=== PATIENT | female | born 1990 | race Hispanic/Latino ===

== ENCOUNTER → 2019-02-23 | Outpatient (CLI) | payer MEDICARE | END | disposition home or self-care (01) | LOC: SLP 20:00 | PROVIDERS: ATTEND Family Medicine | DX: G47.33 Obstructive sleep apnea (adult) (pediatric) (principal); E66.9 Obesity, unspecified; Z68.42 Body mass index [BMI] 45.0-49.9, adult | CPT/HCPCS: 95810 ==

== ENCOUNTER → 2019-04-05 | Outpatient (CLI) | payer MEDICARE | END | disposition home or self-care (01) | LOC: SLP 20:12 | PROVIDERS: ATTEND Family Medicine | DX: G47.33 Obstructive sleep apnea (adult) (pediatric) (principal); G47.34 Idiopathic sleep related nonobstructive alveolar hypoventilation; R06.83 Snoring; E66.9 Obesity, unspecified; F41.9 Anxiety disorder, unspecified; F32.9 Major depressive disorder, single episode, unspecified | CPT/HCPCS: 95811 ==

== ENCOUNTER → 2019-06-25 | Outpatient (CLI) | payer MEDICARE | END | disposition home or self-care (01) | LOC: SLP 19:46 | PROVIDERS: ATTEND Obstetrics & Gynecology | DX: G47.33 Obstructive sleep apnea (adult) (pediatric) (principal) | CPT/HCPCS: 95811 ==

== ENCOUNTER 2022-01-19 18:22 | Emergency (ER) | payer OTHER, MEDICARE ==
[~2022-01-19] VITALS: Ht 160 cm; Wt 108.0 kg
[2022-01-19 18:23] VITALS: BP 127/82
[2022-01-19 19:21] LABS: APPEARANCE,URINE CLOUDY (CLEAR); BILIRUBIN,URINE NEGATIVE (NEGATIVE); COLOR,URINE YELLOW (YELLOW); GLUCOSE, URINE (UA) NEGATIVE (NEGATIVE); KETONES,URINE NEGATIVE (NEGATIVE); LEUKOCYTE ESTERASE ,URINE NEGATIVE (NEGATIVE); NITRATE,URINE NEGATIVE (NEGATIVE); OCCULT BLOOD,URINE NEGATIVE (NEGATIVE); PH,URINE 7.5 (5.0-8.0); PROTEIN,URINE NEGATIVE (NEGATIVE); UROBILINOGEN,URINE 0.2 mg/dL (0.2-1.0)
[2022-01-19 19:27] LABS: HCG,QUALITATIVE URINE NEGATIVE (NEGATIVE)
[2022-01-19 19:42] LABS: AMORPHOUS SEDIMENT,UR Moderate /LPF (None Seen); BACTERIA,URINE Few /HPF (None Seen); RBC,URINE 0-1 /HPF (0-1); SQUAMOUS EPITHELIAL CELL,UR Rare /HPF (0-2); WBC,URINE 0-1 /HPF (0-1)
[2022-01-19] MEDS ORDERED: ONDANSETRON ODT 4MG TAB SL ONE (20:00)
[2022-01-19 20:20] LABS: BASOPHILS % (AUTO) 0.1 % (0.0-5.0); EOSINOPHILS % (AUTO) 1.6 % (0.0-8.0); HEMATOCRIT 38.7 % (36-48); LYMPHOCYTES % (AUTO) 21.9 % (21.0-51.0); MEAN CORPUSCULAR HEMOGLOBIN 25.9 pg (27.0-33.0); MEAN CORPUSCULAR HGB CONC 31.8 g/dL (32.0-36.0); MEAN CORPUSCULAR VOLUME 81.6 fL (79-99); MONOCYTES % (AUTO) 6.9 % (3.0-13.0); NEUTROPHILS % (AUTO) 69.1 % (40.0-77.0); PLATELET COUNT (AUTO) 276 K/uL (130-400); RED BLOOD CELL COUNT(AUTO) 4.74 MIL/uL (4.00-5.50); RED CELL DISTRIBUTION WIDTH 14.2 % (11.0-15.5); WHITE BLOOD COUNT (AUTO) 14.3 K/uL (4.8-10.8)
[2022-01-19 20:33] LABS: CREATININE 0.6 mg/dL (0.5-1.5); POTASSIUM 3.7 mmol/L (3.5-5.1)
[2022-01-19 20:41] LABS: ALBUMIN 3.4 g/dL (3.5-5.0); TOTAL PROTEIN, SERUM 6.9 g/dL (6.0-8.3)
[2022-01-19] MEDS ORDERED: ONDA4TAB10 PO (21:03)
== END 2022-01-19 21:20 | disposition home or self-care (01) ==
LOC: EDH 18:22
DX: R11.2 Nausea with vomiting, unspecified (principal); R10.13 Epigastric pain; Z20.822 Contact with and (suspected) exposure to COVID-19; F32.A Depression, unspecified; F20.9 Schizophrenia, unspecified
CPT/HCPCS: 99284; 87635; 80053; 85025; 87804 ×2; 81001; 81025; 36415; 74018; C9803

== ENCOUNTER 2022-01-24 | Emergency (ER) | payer OTHER, MEDICARE ==
[~2022-01-24] VITALS: Ht 160 cm; Wt 96.2 kg
[~2022-01-24] MED LIST: ONDA4TAB10 PO
[2022-01-24 00:02] VITALS: BP 121/81
[2022-01-24] MEDS ORDERED: HYDR25CA PO (00:47)
== END 2022-01-24 00:51 | disposition home or self-care (01) ==
LOC: EDH
DX: F41.9 Anxiety disorder, unspecified (principal); E11.9 Type 2 diabetes mellitus without complications; F20.9 Schizophrenia, unspecified

== ENCOUNTER → 2022-03-01 | Outpatient (CLI) | payer OTHER, MEDICARE ==
[~2022-03-01] MED LIST changes: +HYDR25CA PO
== END | disposition home or self-care (01) ==
LOC: SLP 19:51
PROVIDERS: ATTEND Obstetrics & Gynecology
DX: G47.33 Obstructive sleep apnea (adult) (pediatric) (principal)
CPT/HCPCS: 95811

== ENCOUNTER 2022-11-10 13:07 | Emergency (ER) | payer OTHER, MEDICARE ==
[~2022-11-10] VITALS: Ht 160 cm; Wt 128.4 kg
[2022-11-10] MEDS ORDERED: KETOROLAC 60 MG VIAL (30MG/ML) IM ONE (13:30)
[2022-11-10 14:26] LABS: BASOPHILS % (AUTO) 0.2 % (0.0-5.0); EOSINOPHILS % (AUTO) 1.3 % (0.0-8.0); HEMATOCRIT 36.4 % (36-48); LYMPHOCYTES % (AUTO) 25.8 % (21.0-51.0); MEAN CORPUSCULAR HGB CONC 32.7 g/dL (32.0-36.0); MEAN CORPUSCULAR VOLUME 82.5 fL (79-99); MONOCYTES % (AUTO) 6.3 % (3.0-13.0); NEUTROPHILS % (AUTO) 65.8 % (40.0-77.0); PLATELET COUNT (AUTO) 250 K/uL (130-400); RED BLOOD CELL COUNT(AUTO) 4.41 MIL/uL (4.00-5.50); RED CELL DISTRIBUTION WIDTH 13.8 % (11.0-15.5); WHITE BLOOD COUNT (AUTO) 10.6 K/uL (4.8-10.8)
[2022-11-10 14:33] LABS: APPEARANCE,URINE CLEAR (CLEAR); BILIRUBIN,URINE NEGATIVE (NEGATIVE); COLOR,URINE YELLOW (YELLOW); GLUCOSE, URINE (UA) NEGATIVE (NEGATIVE); HCG,QUALITATIVE URINE NEGATIVE (NEGATIVE); KETONES,URINE NEGATIVE (NEGATIVE); LEUKOCYTE ESTERASE ,URINE NEGATIVE Leu/uL (NEGATIVE); NITRATE,URINE NEGATIVE (NEGATIVE); OCCULT BLOOD,URINE NEGATIVE (NEGATIVE); PH,URINE 6.5 (5.0-8.0); PROTEIN,URINE 50 mg/dL (NEGATIVE)
[2022-11-10 14:37] LABS: CREATININE 0.5 mg/dL (0.5-1.5); POTASSIUM 3.8 mmol/L (3.5-5.1)
[2022-11-10 14:41] LABS: BACTERIA,URINE FEW /HPF (None Seen); MUCUS,URINE RARE LPF (None Seen); OTHER CASTS, URINE 1 /LPF (None Seen); SQUAMOUS EPITHELIAL CELL,UR RARE /HPF (0-2)
[2022-11-10 14:41] LABS: ALBUMIN 3.5 g/dL (3.5-5.0)
[2022-11-10 15:06] LABS: B-TYPE NATRIURETIC PEPTIDE 6 pg/mL (0-100)
[2022-11-10 16:36] LABS: ABG OXYGEN SATURATION 70.4 % (95.0-99.0); HCO3,VENOUS BLOOD GAS 26.9 (21.0-28.0); PCO2,VENOUS BLOOD GAS 47 (32-45); PH,VENOUS BLOOD GAS 7.374 (7.350-7.450)
[2022-11-10] MEDS ORDERED: ALBU6.7H14 IH (16:54)
[2022-11-10] MEDS ORDERED: D-ME118S47 PO (16:54)
[2022-11-10 17:03] VITALS: BP 148/79
== END 2022-11-10 17:08 | disposition home or self-care (01) ==
LOC: EDH 13:07
DX: R06.02 Shortness of breath (principal); E11.9 Type 2 diabetes mellitus without complications; F31.9 Bipolar disorder, unspecified; F20.9 Schizophrenia, unspecified; F41.9 Anxiety disorder, unspecified
CPT/HCPCS: 99285; 71045; 84484; 80053; 82803; 83880; 85025; 81001; 81025; 36415; 96372; 93005; 36600; J1885

== ENCOUNTER 2022-11-20 20:38 | Emergency (ER) | payer OTHER, MEDICARE ==
[~2022-11-20] VITALS: Ht 160 cm; Wt 127.0 kg
[~2022-11-20 20:38] MED LIST changes: +ALBU6.7H14 IH; +D-ME118S47 PO
[2022-11-20 22:15] VITALS: BP 124/75
[2022-11-20] MEDS ORDERED: BENZ200C53 PO (23:10)
== END 2022-11-20 23:36 | disposition home or self-care (01) ==
LOC: EDH 20:38
DX: R05.9 Cough, unspecified (principal); R06.02 Shortness of breath; F41.9 Anxiety disorder, unspecified; F20.9 Schizophrenia, unspecified; F31.9 Bipolar disorder, unspecified; G47.30 Sleep apnea, unspecified; Z79.899 Other long term (current) drug therapy; Z98.890 Other specified postprocedural states
CPT/HCPCS: 71045

== ENCOUNTER → 2022-12-31 | Outpatient (CLI) | payer OTHER, MEDICARE ==
[~2022-12-31] MED LIST changes: +BENZ200C53 PO; +GADOTERATE MEGLUMINE 10 MMOL/20 ML VIAL IV ONE
== END | disposition home or self-care (01) ==
LOC: RAH 11:26
PROVIDERS: ATTEND Internal Medicine
DX: D35.2 Benign neoplasm of pituitary gland (principal)
CPT/HCPCS: 70553; A9575

== ENCOUNTER 2023-10-17 08:25 | Day surgery (SDC) | payer OTHER, MEDICARE ==
[2023-10-15 12:13] LABS: BASOPHILS # (AUTO) 0.02 K/uL (0.00-0.20); BASOPHILS % (AUTO) 0.2 % (0.0-5.0); EOSINOPHILS # (AUTO) 0.16 K/uL (0.00-0.70); EOSINOPHILS % (AUTO) 1.5 % (0.0-8.0); HEMATOCRIT 37.8 % (36-48); IMMATURE GRANULOCYTE ABSOLUTE 0.04 K/uL (0-1); LYMPHOCYTES # (AUTO) 3.9 K/uL (1.0-4.8); LYMPHOCYTES % (AUTO) 36.6 % (21.0-51.0); MEAN CORPUSCULAR HEMOGLOBIN 26.9 pg (27.0-33.0); MEAN CORPUSCULAR HGB CONC 32.3 g/dL (32.0-36.0); MEAN CORPUSCULAR VOLUME 83.3 fL (79-99); MONOCYTES # (AUTO) 0.8 K/uL (0.1-1.0); MONOCYTES % (AUTO) 7.5 % (3.0-13.0); NEUTROPHILS # (AUTO) 5.7 K/uL (1.8-7.7); NEUTROPHILS % (AUTO) 53.8 % (40.0-77.0); PLATELET COUNT (AUTO) 266 K/uL (130-400); RED BLOOD CELL COUNT(AUTO) 4.54 MIL/uL (4.00-5.50); RED CELL DISTRIBUTION WIDTH 13.5 % (11.0-15.5); WHITE BLOOD COUNT (AUTO) 10.6 K/uL (4.8-10.8)
[2023-10-15 12:22] LABS: CREATININE 0.6 mg/dL (0.5-1.0); POTASSIUM 3.4 mmol/L (3.5-5.1)
[2023-10-15 12:23] LABS: INR <= 0.93 (0.85-1.15); PROTHROMBIN TIME 10.1 SEC (9.6-11.6)
[2023-10-15 12:25] LABS: PARTIAL THROMBOPLASTIN TIME 28.4 SEC (26.3-35.5)
[2023-10-15 12:39] VITALS: BP 91/59; PULSE 81; RESP 18
[~2023-10-17] VITALS: Ht 160 cm; Wt 122.2 kg
[2023-10-17] VITALS (17 sets, daily range): BP systolic 116–143; BP diastolic 58–85; PULSE 70–85; RESP 10–29
[~2023-10-17 08:25] MED LIST changes: -ALBU6.7H14 IH; -BENZ200C53 PO; +CABE0.5T2 PO; -D-ME118S47 PO; -GADOTERATE MEGLUMINE 10 MMOL/20 ML VIAL IV ONE; -HYDR25CA PO; +LINA145C PO; +MIRA50TA PO; -ONDA4TAB10 PO; +RISP-31 PO; +RISP4TAB94 PO; +SEMA0.258 SQ; +TRAZODONE PO
[2023-10-17] MEDS: LACTATED RINGERS 1000ML 1,000 ML IV ONE (10:05)
[2023-10-17] MEDS: CEFAZOLIN SODIUM 2 GM VIAL ONE (10:05)
[2023-10-17] MEDS ORDERED: ONDANSETRON 4MG INJ ONE (11:03)
[2023-10-17] MEDS ORDERED: MIDAZOLAM HCL 1 MG/ML 2ML VIAL ONE (11:04)
[2023-10-17] MEDS ORDERED: SUCCINYLCHOLINE CHLORIDE 20 MG/ML 10 ML VIAL ONE (11:04)
[2023-10-17] MEDS ORDERED: LIDOCAINE PF 100MG/5ML (2%) SYRINGE 5ML ONE (11:04)
[2023-10-17] MEDS ORDERED: PROPOFOL 10 MG/ML 20ML VIAL IV ONE ×2 (11:04→12:48)
[2023-10-17] MEDS ORDERED: ROCURONIUM BROMIDE 10MG/1ML 5ML VL ONE (11:04)
[2023-10-17] MEDS ORDERED: FENTANYL CITRATE PF 50 MCG/1 ML 2ML VIAL ONE ×2 (11:07→12:47)
[2023-10-17] MEDS ORDERED: ACETAMINOPHEN 1,000 MG/100 ML VIAL IV ONE (11:14)
[2023-10-17] MEDS: INDOCYANINE GREEN 25 MG VIAL IJ ONE (11:15)
[2023-10-17] MEDS: BUPIVACAINE/PF 0.25% 30ML VIAL IJ ONE (11:52)
[2023-10-17] MEDS ORDERED: GLYCOPYRROLATE 0.2 MG/ML 5 ML VIAL ONE (12:35)
[2023-10-17] MEDS ORDERED: NEOSTIGMINE METHYLSULFATE 1MG/ML IV ONE (12:35)
[2023-10-17] MEDS: MEPERIDINE-PF 25 MG/ML SYG ONE ×2 (14:07)
== END 2023-10-17 15:00 | disposition home or self-care (01) ==
LOC: DAH 08:25
PROVIDERS: ATTEND Surgery
DX: K80.10 Calculus of gallbladder with chronic cholecystitis without obstruction (principal); G47.30 Sleep apnea, unspecified; F41.9 Anxiety disorder, unspecified; E66.01 Morbid (severe) obesity due to excess calories; Z79.01 Long term (current) use of anticoagulants; Z79.899 Other long term (current) drug therapy; Z68.42 Body mass index [BMI] 45.0-49.9, adult
CPT/HCPCS: 80048; 84703; 85025; 85610; 85730; 36415; 47562; 88304; A6260; J0665; A4663; J7030; A4452; J7120; J3010 ×2; J0330; J3490 ×2; J2001; J2250; J2704 ×2; J2405; J2710; J2175 ×2; J0690; C1769; A4649; A4930; A4215; A4223; A4222; A4221; A4600